=== PATIENT | male | born 1950 | race Caucasian/White ===

== ENCOUNTER → 2019-03-30 | Day surgery (SDC) | payer MEDICARE, BC ==
[2019-03-29 11:17] LABS: BASOPHILS # (AUTO) 0.1 (0.0-0.1); BASOPHILS % 0.7 % (0.0-1.0); EOSINOPHILS # (AUTO) 0.2 (0.0-0.4); EOSINOPHILS % 3.6 % (0.0-6.0); HEMOGLOBIN 15.4 g/dL (14.0-18.0); LYMPHOCYTES # (AUTO) 1.3 (1.0-3.2); MEAN CORPUSCULAR HEMOGLOBIN 26.1 pg (28-32); MEAN CORPUSCULAR HGB CONC 32.8 g/dL (31-35); MEAN CORPUSCULAR VOLUME 79.7 fL (81-99); MONOCYTES # (AUTO) 0.8 (0.2-0.8); MONOCYTES % 12.1 % (4.4-11.3); NEUTROPHILS # (AUTO) 4.3 (2.1-6.9); NEUTROPHILS % 64.3 % (38.7-80.0); PLATELET COUNT 241 x10e3/uL (140-360); RED CELL DISTRIBUTION WIDTH 18.9 % (11.7-14.4)
[2019-03-29 11:39] LABS: ALANINE AMINOTRANSFERASE 22 IU/L (0-55); ALBUMIN 3.8 g/dL (3.5-5.0); ALBUMIN/GLOBULIN RATIO 1.5 (0.8-2.0); ALKALINE PHOSPHATASE 63 IU/L (40-150); ANION GAP 11.2 mmol/L (8-16); BLOOD UREA NITROGEN 19 mg/dL (7-26); BUN/CREATININE RATIO 18 (6-25); CALCIUM 9.7 mg/dL (8.4-10.2); CARBON DIOXIDE 30 mmol/L (22-29); CHLORIDE 100 mmol/L (98-107); CREATININE, SERUM 1.08 mg/dL (0.72-1.25); EST GLOMERULAR FILTRATION RATE > 60 ML/MIN (60-); GLUCOSE 252 mg/dL (74-118); POTASSIUM 4.2 mmol/L (3.5-5.1); SODIUM 137 mmol/L (136-145)
[~2019-03-30] VITALS: Ht 180.3 cm; Wt 99.3 kg
[2019-03-30] VITALS (9 sets, daily range): BP systolic 96–139; BP diastolic 64–79
[~2019-03-30] MED LIST: ASPIRIN81 M2 PO; ATORVASTATIN CA20 MG PO; CIALIS20 MG PO; CIALIS5 MG PO; CORDRAN120 ML; CYANOCOBALAMIN INJ; FENTANYL CITRATE/PF 100MCG/2 ML INJ ONE; HEPARIN SOD/SOD CHLORIDE 2,000 ML ONE; HUMALOG100 UNIT/1; INVOKANA PO; IOPAMIDOL 370 MG/ML 200 ML INFUS..BTL INJ ONE; JARDIANCE PO; LEVOTHYROXINE50 MCG PO; LIDOCAINE HCL 2% LOCAL 20 ML VIAL ONE; MIDAZOLAM HCL 2 MG/2 ML VIAL ONE; NOVOLOG; NOVOLOG IL; SODIUM CHLORIDE 0.9% 1000ML 1,000 ML ONE; TESTOSTERO100 MG/1 M INJ; VERAPAMIL HCL 2.5 MG/ML 2 ML VIAL ONE; VYTORIN 10-401 EACH PO; Z ANDROGEL TD; Z MICARDIS HCT PO; Z.0.ACTOS30 MG PO; Z.0.ACTOS45 MG PO; Z.0.ASPIRIN CHEW81 M; Z.0.JANUVIA100 MG PO; Z.0.NEXIUM40 MG PO; Z.1.METFORMIN HCL100 PO; Z.2.VENLAFAXINE HCL7 PO; [UNRECOGNIZED DRUG - OTHER] PO; vitorin
--- OUTSIDE RECORDS SUMMARY | 2019-03-30 06:23 | XMS REPORT | Summary of Care ---
Author Author Ene Zayas LVN Organization Unknown Address [facility] Phone Unavailable Care Team Providers Care Pump House Operator Name Role Phone JOHNNIE WAN M.D. 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 Patient cannot afford medications (V60.2, Z59.6) Status: Active Health insurance coverage through Medicare Status: Active Has health insurance with inadequate coverage of health expenses (V60.89, Z59.8) Status: Active Type I diabetes mellitus without complication, uncontrolled (250.03, E10.65) Status: Active 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, 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 * Start : 06-Aug-2012 Active metFORMIN HCl - 1000 MG Oral Tablet TAKE ONE-HALF TABLET BY MOUTH TWICE DAILY * Quantity: 90 Refills: 0 SOCO JOHNNIE Munguia * Start : 03-Mar-2019 Active Centrum Silver Ultra Mens Oral Tablet 1 a day * Refills: 0 JOHNNIE WAN M.D. * Start : 06-Aug-2012 Active Aspirin 81 MG Oral Tablet Chewable 1 a day * Refills: 0 JOHNNIE WAN M.D. * Start : 06-Aug-2012 Active GlucaGen HypoKit 1 MG Injection Solution Reconstituted USE DIRECTED in case of severe hypoglycemia * Quantity: 1 Refills: 10 JOHNNIE WAN M.D. * Start : 06-Aug-2012 Active Effexor XR 75 MG Oral Capsule Extended Release 24 Hour TAKE 1 CAPSULE DAILY. * Refills: 0 JOHNNIE WAN M.D. * Start : 06-Aug-2012 Active NexIUM 40 MG Oral Capsule Delayed Release Per PCP * Refills: 0 JOHNNIE WAN M.D. * Start : 06-Aug-2012 Active Levothyroxine Sodium 50 MCG Oral Tablet TAKE 1 TABLET BY MOUTH EVERY DAY * Quantity: 90 Refills: 0 JOHNNIE WAN M.D. * Start : 25-Jan-2019 Active Testosterone Cypionate 200 MG/ML Intramuscular Solution INJECT 0.8 ML INTRAMUSCULARLY EVERY 2 WEEKS. Starting May * Quantity: 1 Refills: 1 JOHNNIE WAN M.D. * Start : 08-Mar-2013 Active 10 ML Vial Syringe 21G X 1" 3 ML For IM injection 2x a month * Quantity: 12 Refills: 4 JOHNNIE WAN M.D. * Start : 08-Mar-2013 Active Cialis 20 MG Oral Tablet TAKE 1 TABLET 1 HOUR BEFORE ACTIVITY NEEDED EVERY 3 DAYS. * Quantity: 20 Refills: 1 JOHNNIE WAN M.D. * Start : 30-Apr-2013 Active NovoFine 32G X 6 MM use to inject once daily * Quantity: 1 Refills: 3 JOHNNIE WAN M.D. * Start : 08-Apr-2014 Active 100 Miscellaneous Box Ketostix In Vitro Strip USE DIRECTED. * Quantity: 100 Refills: 0 JOHNNIE WAN M.D. * Start : 08-Sep-2015 Active Toujeo SoloStar 300 UNIT/ML Subcutaneous Solution Pen-injector 18 units every 12 hours if not wearing insulin * Refills: 0 JOHNNIE WAN M.D. * Start : 09-Sep-2016 Active Contour Next Test In Vitro Strip Check BG 8x a day * Quantity: 9 Refills: 3 JOHNNIE WAN M.D. * Start : 10-Oct-2016 Active 100 Strip Box Loy Microlet Lancets MISC CHECK BLOOD GLUCOSE 8 TIMES A DAY * Quantity: 3 Refills: 2 JOHNNIE WAN M.D. * Start : 10-Oct-2016 Active 100 Unit Package HumaLOG 100 UNIT/ML Subcutaneous Solution MN=1.0;5A=1.35; 5A=1.15; 1P=0.65; 4P=2.6; 9P=1.15; ICR MN=5.0; 5A=4.0; 8A=4.0; 4 P=2.9; 9P=4.2; CF: 40 (MN); 55 (9P) MDD:110 units * Quantity: 10 Refills: 0 JOHNNIE WAN M.D. * Start : 16-Feb-2018 Active 10 ML Vial Atorvastatin Calcium 40 MG Oral Tablet TAKE 1 TABLET BY MOUTH AT NIGHT.*REPLACING VYTORIN* * Quantity: 90 Refills: 0 JOHNNIE WAN M.D. * Start : 03-Mar-2019 Active Losartan Potassium-HCTZ 100-25 MG Oral Tablet TAKE 1 TABLET BY MOUTH DAILY( REPLACING MICARDIS HCT) * Quantity: 90 Refills: 0 JOHNNIE WAN M.D. * Start : 22-Jan-2019 Active Jardiance 10 MG Oral Tablet 1 tablet daily every morning; Replacing InvokanaStarting 09-28-18 * Quantity: 90 Refills: 0 JOHNNIE WAN M.D. * Start : 01-Jun-2018 Active FreeStyle Bertha 14 Day [place] Device * Refills: 0 JOHNNIE WAN M.D. * Start : 28-Sep-2018 Active FreeStyle Bertha 14 Day Sensor CHANGE ONE SENSOR EVERY14 DAYS DIRECTED * Quantity: 7 Refills: 3 JOHNNIE WAN M.D. * Start : 28-Sep-2018 Active Allergies and Adverse Reactions Name Dates Details Contrast Media Ready-Box MISC (Allergy) Status: Active Penicillins (Allergy) Status: Active Tetanus Toxoids (Allergy) Status: Active Procedures Procedure Dates Details History of Hernia Repair Completed Immunization Name Dates Details Influenza Lot #: [id number] on: 02-Sep-2014 Fluzone Quadrivalent 0.5 ML Intramuscular Suspension Prefilled Syringe Lot #: [id number] on: 08-Sep-2015 Fluzone High-Dose 0.5 ML Intramuscular Suspension Prefilled Syringe Lot #: [id number] on: 28-Sep-2018 Family History Name Dates Details Family history of Coronary Artery Disease (V17.49) Comments: Family History Status: Active Name Dates Details Family history of essential hypertension (V17.49, Z82.49) Status: Active Name Dates Details Family history of essential hypertension (V17.49, Z82.49) Status: Active Family history of Prostate cancer (185, C61) Status: Active Social History Name Dates Details - Status: Name Dates Details Never smoker Vital Signs Date Test Result Details No Known Vitals to report Results Date Description Value Details Results not documented Plan of Care Name Dates Details Planned Observations Planned Goals not documented Planned Encounters Appointment; JOHNNIE WAN M.D. On: 05-May-2019 9:00 Instructions Name Dates Details Instructions not documented Encounters Appointment; JOHNNIE WAN M.D. Encounter Diagnosis: Problem not documented On: 06-Jun-2017 12:00 Appointment; JOHNNIE WAN M.D. Encounter Diagnosis: Problem not documented On: 26-Sep-2017 12:00 Appointment; JOHNNIE WAN M.D. Encounter Diagnosis: Problem not documented On: 16-Feb-2018 12:00 Appointment; JOHNNIE WAN M.D. Encounter Diagnosis: Problem not documented On: 01-Jun-2018 8:30 Appointment; JOHNNIE WAN M.D. Encounter Diagnosis: Problem not documented On: 28-Sep-2018 8:30 Appointment; JOHNNIE WAN M.D. Encounter Diagnosis: Problem not documented On: 06-Jan-2019 9:30
--- NOTE | 2019-03-30 09:38 | NUR ---
0938 Received pt into #[id number] . [facility] Dr Shaffer Via rt radial Tr band approach No fix Denies For dc after 1030 whe Tr band removed.Back to baseline orientation, Resp shallow and regular sat 100% RA Abdomen soft and non tender denies necessity to defecate or urinate. Bilateral PPx4 PD/Dp intact. Offered PO intake able to tolerate.Explained POC aware of importance of f/o care. Vs stable No fross issues pain pallor pressure or dysrhythmia. No bleeding or hematoma noted. 1030 Tr band air removal started -2cc Neuro-vascular function intact 1130 Tr band air removal completed no hematoma and oozing Coban dressing applied with 2x2 dressing and wrist splint. 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 ds/rn
--- NOTE | 2019-03-30 11:30 | NUR ---
1130 Tr band off Tolerated removal. No gross issues pain pallor pressure or dysrhythmia. Neuro vascular function intact. Coban dressing with Tegaderm, 2x2 and Coban. Iv removed site w/o s/s infiltration Coban dressing in place.{t has copies of POC and aware of importance f/o care. Escorted to care via [employer] [employer] [facility] employee per wc No c/o Cp or Sob . ds/rn
--- NOTE | 2019-03-30 14:55 | Operative Report ---
DATE OF PROCEDURE: 03/30/2019 SURGEON: Benjamín Shaffer MD INDICATION: Coronary artery disease, abnormal stress test. PROCEDURES PERFORMED: 1. Left heart catheterization, selective coronary angiography. 2. Deployment of right wrist TR band. COMPLICATIONS: None. RECOMMENDATIONS: Dual antiplatelet therapy. DESCRIPTION OF PROCEDURE: Access obtained in the right radial artery. A 5-Maltese sheath was placed. Coronary angiography demonstrated [id number] coronary artery disease, diffuse 20% to 30% stenosis in all coronary vessels. Right coronary artery was dominant vessel. No critical stenosis or occlusions were noted. LV end-diastolic pressure of 4. No gradient across the aortic valve on pullback. Right wrist TR band applied. The patient was discharged home same day. Benjamín Shaffer MD [facility] /[id number]
== END | disposition home or self-care (01) ==
LOC: CATH LAB 06:21
PROVIDERS: ATTEND Internal Medicine Interventional Cardiology
DX: I25.10 Atherosclerotic heart disease of native coronary artery without angina pectoris (principal); R94.39 Abnormal result of other cardiovascular function study; I87.2 Venous insufficiency (chronic) (peripheral); R09.89 Other specified symptoms and signs involving the circulatory and respiratory systems; Z01.812 Encounter for preprocedural laboratory examination; Z79.82 Long term (current) use of aspirin; Z79.4 Long term (current) use of insulin
CPT/HCPCS: 36415 ×2; 80053; 82948; 85025; 93458; C1769; C1887; J2001; J2250; J7030; Q9967

== ENCOUNTER → 2019-12-22 | Outpatient (CLI) | payer MEDICARE, BC ==
[~2019-12-22] MED LIST changes: -FENTANYL CITRATE/PF 100MCG/2 ML INJ ONE; -HEPARIN SOD/SOD CHLORIDE 2,000 ML ONE; -IOPAMIDOL 370 MG/ML 200 ML INFUS..BTL INJ ONE; -LIDOCAINE HCL 2% LOCAL 20 ML VIAL ONE; -MIDAZOLAM HCL 2 MG/2 ML VIAL ONE; -SODIUM CHLORIDE 0.9% 1000ML 1,000 ML ONE; -VERAPAMIL HCL 2.5 MG/ML 2 ML VIAL ONE
--- NOTE | 2019-12-22 12:14 | Diagnostic Imaging Report ---
EXAM: Lumbar spine radiographs-4 views INDICATION: Lumbago COMPARISON: Report from lumbar spine radiographs 09/19/2013, the images are not available for review at the time of this dictation. FINDINGS: BONES: The alignment is within normal limits. No acute displaced fractures. Vertebral body heights are preserved. Likely bone island at L1, previously described on lumbar spine radiograph from 09/19/2013, although the images are not available for review for comparison. DISCS: Mild multilevel degenerative disc changes, most pronounced at L5-S1. JOINTS: Moderate facet degenerative changes at L4-L5 and L5-S1. SOFT TISSUES: Unremarkable IMPRESSION: No acute radiographic abnormality. Mild degenerative disc and moderate facet degenerative changes as above. Signed by: Dr. Nikunj Kaminski MD on 12/22/2019 12:11 PM
== END ==
LOC: RAD 11:31
PROVIDERS: ATTEND Internal Medicine
DX: M54.5 Low back pain (principal)
CPT/HCPCS: 72100

== ENCOUNTER → 2021-06-21 | Outpatient (CLI) | payer MEDICARE, BC | LOC: RAD 15:15 | PROVIDERS: ATTEND Internal Medicine | DX: M17.11 Unilateral primary osteoarthritis, right knee (principal) ==

== ENCOUNTER 2022-03-30 10:51 | Inpatient (IN) | payer MEDICARE, BC ==
[~2022-03-30] VITALS: Ht 180.3 cm; Wt 99.3 kg
[2022-03-30] MEDS ORDERED: SODIUM CHLORIDE 0.9% 1000ML 1,000 ML IV STA (11:25)
[2022-03-30 11:45] LABS: BASOPHILS % 0.4 % (0.0-1.0); EOSINOPHILS # (AUTO) 0.2 (0.0-0.4); EOSINOPHILS % 2.1 % (0.0-6.0); HEMATOCRIT 40.3 % (38.2-49.6); HEMOGLOBIN 13.2 g/dL (14.0-18.0); MEAN CORPUSCULAR HEMOGLOBIN 29.6 pg (28-32); MEAN CORPUSCULAR HGB CONC 32.8 g/dL (31-35); MEAN CORPUSCULAR VOLUME 90.4 fL (81-99); MONOCYTES # (AUTO) 0.4 (0.2-0.8); MONOCYTES % 5.6 % (4.4-11.3); NEUTROPHILS # (AUTO) 5.6 (2.1-6.9); NEUTROPHILS % 77.5 % (38.7-80.0); PLATELET COUNT 209 x10e3/uL (140-360); RED BLOOD COUNT 4.46 x10e6/uL (4.3-5.7)
[2022-03-30 12:06] LABS: INR 1.01; PARTIAL THROMBOPLASTIN TIME 26.3 seconds (23.8-35.5); PROTHROMBIN TIME 14.2 seconds (11.9-14.5)
[2022-03-30 12:14] LABS: ALANINE AMINOTRANSFERASE 26 IU/L (0-55); ALBUMIN 3.5 g/dL (3.5-5.0); ALBUMIN/GLOBULIN RATIO 1.3 (0.8-2.0); ALKALINE PHOSPHATASE 66 IU/L (40-150); ANION GAP 13.9 mmol/L (8-16); BLOOD UREA NITROGEN 20 mg/dL (7-26); BUN/CREATININE RATIO 24 (6-25); CALCIUM 8.4 mg/dL (8.4-10.2); CARBON DIOXIDE 26 mmol/L (22-29); CHLORIDE 105 mmol/L (98-107); CREATINE KINASE 209 IU/L (30-200); CREATININE, SERUM 0.85 mg/dL (0.72-1.25); GLUCOSE 217 mg/dL (74-118); MAGNESIUM 1.5 MG/DL (1.3-2.1); POTASSIUM 3.9 mmol/L (3.5-5.1); SODIUM 141 mmol/L (136-145)
[2022-03-30] MEDS ORDERED: ONDANSETRON HCL INJ 2MG/ML 2ML 2 MG/ML VIAL IV STA (12:23)
[2022-03-30] MEDS ORDERED: FLOMAX0.4 MG PO (12:25)
[2022-03-30] MEDS ORDERED: FUROSEMIDE40 MG PO (12:27)
[2022-03-30] MEDS ORDERED: LOSARTAN POTAS100 MG PO (12:27)
[2022-03-30] MEDS ORDERED: METAMUCIL FIBE3.4 GM PO (12:28)
[2022-03-30] MEDS ORDERED: D3 PO (12:29)
[2022-03-30] MEDS ORDERED: ZINC PO (12:30)
[2022-03-30] MEDS ORDERED: MECLIZINE HCL 12.5 MG TAB PO NR (12:30)
[2022-03-30] MEDS ORDERED: L-LYSINE500 M2 PO (12:31)
[2022-03-30] MEDS ORDERED: DEXTROSE 50% SYRINGE 50 ML IV PRN (13:30)
[2022-03-30] MEDS ORDERED: ONDANSETRON HCL INJ 2MG/ML 2ML 2 MG/ML VIAL IV PRN ×2 (13:30→14:15)
[2022-03-30] MEDS ORDERED: IOPAMIDOL 370 MG/ML 100 ML INFUS..BTL INJ ONE (13:38)
[2022-03-30] MEDS ORDERED: METHYLPREDNISOLONE SOD SUCC 125 MG/2ML VIAL IV STA (13:58)
[2022-03-30] MEDS ORDERED: CYANOCOBALAMIN INJ 1,000 MCG/ML VIAL IM SCH (15:15)
[2022-03-30 15:50] VITALS: BP 173/67
[2022-03-30] MEDS: INSULIN LISPRO 100 UNIT/1 ML 3ML VIAL SQ SCH ×2 (16:30→21:00)
[2022-03-30 16:50] VITALS: BP 173/67
[2022-03-30] MEDS: METFORMIN HCL 500 MG TAB PO SCH (17:00)
[2022-03-30] MEDS: MECLIZINE HCL 12.5 MG TAB PO PRN (17:21)
[2022-03-30] MEDS ORDERED: DIPHENHYDRAMINE HCL INJ 50 MG/ML VIAL IV ONE (18:30)
[2022-03-30] MEDS: HYDROCORTISONE SOD SUCCINATE 100 MG VIAL IV SCH (18:32)
[2022-03-30 18:40] VITALS: BP 173/67
[2022-03-30 20:20] VITALS: BP 161/68
[2022-03-30 20:59] LABS: CREATINE KINASE 175 IU/L (30-200)
[2022-03-30 21:00] VITALS: BP 161/68
[2022-03-31 00:25] VITALS: BP 117/49
[2022-03-31 04:00] VITALS: BP 133/52
[2022-03-31] MEDS ORDERED: LEVOTHYROXINE SODIUM 50 MCG TAB PO SCH (06:00)
[2022-03-31 07:06] LABS: BASOPHILS % 0.1 % (0.0-1.0); HEMATOCRIT 40.3 % (38.2-49.6); HEMOGLOBIN 13.3 g/dL (14.0-18.0); LYMPHOCYTES # (AUTO) 0.9 (1.0-3.2); LYMPHOCYTES % 5.5 % (18.0-39.1); MEAN CORPUSCULAR HEMOGLOBIN 30.2 pg (28-32); MEAN CORPUSCULAR VOLUME 91.6 fL (81-99); MONOCYTES # (AUTO) 0.5 (0.2-0.8); MONOCYTES % 3.2 % (4.4-11.3); NEUTROPHILS % 90.7 % (38.7-80.0); PLATELET COUNT 240 x10e3/uL (140-360); RED CELL DISTRIBUTION WIDTH 13.2 % (11.7-14.4)
[2022-03-31] MEDS ORDERED: OMEPRAZOLE 20 MG CAP PO SCH (07:30)
[2022-03-31] MEDS: INSULIN LISPRO 100 UNIT/1 ML 3ML VIAL SQ SCH ×2 (07:30→11:30)
[2022-03-31 07:32] LABS: ALBUMIN 3.1 g/dL (3.5-5.0); ALBUMIN/GLOBULIN RATIO 1.1 (0.8-2.0); CALCIUM 8.6 mg/dL (8.4-10.2); CHOL/HDL RATIO 3.4 (3.9-4.7); CREATININE, SERUM 0.89 mg/dL (0.72-1.25)
[2022-03-31 07:47] VITALS: BP 133/58
[2022-03-31 07:49] LABS: CREATINE KINASE 131 IU/L (30-200)
[2022-03-31 08:14] VITALS: BP 133/58
[2022-03-31] MEDS: MECLIZINE HCL 12.5 MG TAB PO PRN (08:58)
[2022-03-31] MEDS ORDERED: VENLAFAXINE HCL 75 MG TAB PO SCH (09:00)
[2022-03-31] MEDS ORDERED: MULTIVITAMINS/MINERALS TAB PO SCH (09:00)
[2022-03-31] MEDS ORDERED: TAMSULOSIN HCL 0.4 MG CAP PO SCH (09:00)
[2022-03-31] MEDS: HYDROCORTISONE SOD SUCCINATE 100 MG VIAL IV SCH (09:00)
[2022-03-31] MEDS ORDERED: LOSARTAN POTASSIUM 100 MG TAB PO SCH (09:00)
[2022-03-31] MEDS ORDERED: FUROSEMIDE 40 MG TAB PO SCH (09:00)
[2022-03-31] MEDS ORDERED: ASPIRIN 81 MG ENTERIC COATED PO SCH (09:00)
[2022-03-31] MEDS: METFORMIN HCL 500 MG TAB PO SCH (09:03)
[2022-03-31 11:30] VITALS: BP 141/86
[2022-03-31] MEDS ORDERED: GADOBENATE DIMEGLUMINE 1 ML IV ONE (12:45)
[2022-03-31] MEDS ORDERED: ANTIVERT25 M1 PO (14:27)
[2022-03-31 15:08] LABS: CREATINE KINASE 138 IU/L (30-200)
[2022-03-31] MEDS ORDERED: ATORVASTATIN 20 MG TAB PO SCH (21:00)
== END 2022-03-31 15:00 | disposition home or self-care (01) | DRG 149 ==
LOC: ER 11:15 → ERHOLD 13:28 → MED/SURG2 16:59
PROVIDERS: ADMIT Internal Medicine; ATTEND Internal Medicine
DX: H81.393 Other peripheral vertigo, bilateral (principal); H55.09 Other forms of nystagmus; R00.1 Bradycardia, unspecified; I10 Essential (primary) hypertension; E11.9 Type 2 diabetes mellitus without complications; E78.5 Hyperlipidemia, unspecified; I25.10 Atherosclerotic heart disease of native coronary artery without angina pectoris; R27.0 Ataxia, unspecified; Z88.0 Allergy status to penicillin; Z88.8 Allergy status to other drugs, medicaments and biological substances; Z20.822 Contact with and (suspected) exposure to COVID-19; Z82.49 Family history of ischemic heart disease and other diseases of the circulatory system; L98.8 Other specified disorders of the skin and subcutaneous tissue; Z79.84 Long term (current) use of oral hypoglycemic drugs
CPT/HCPCS: 36415; 70450; 70496; 70498; 70553; 71045; 80053; 80061; 82550; 82553; 82948; 83735; 83880; 84443; 84484; 85025; 85610; 85730; 93005; 93306; 94799; 99284; J1200; J1720; J2405; J2930; J7030; Q9967

== ENCOUNTER → 2022-04-25 | Day surgery (SDC) | payer MEDICARE, BC ==
[2022-04-23 08:02] LABS: BASOPHILS % 0.2 % (0.0-1.0); EOSINOPHILS # (AUTO) 0.3 (0.0-0.4); EOSINOPHILS % 3.5 % (0.0-6.0); HEMATOCRIT 43.8 % (38.2-49.6); HEMOGLOBIN 14.3 g/dL (14.0-18.0); LYMPHOCYTES # (AUTO) 1.3 (1.0-3.2); LYMPHOCYTES % 13.7 % (18.0-39.1); MEAN CORPUSCULAR HGB CONC 32.6 g/dL (31-35); MEAN CORPUSCULAR VOLUME 91.8 fL (81-99); MONOCYTES # (AUTO) 0.9 (0.2-0.8); NEUTROPHILS # (AUTO) 7.2 (2.1-6.9); NEUTROPHILS % 73.5 % (38.7-80.0); PLATELET COUNT 250 x10e3/uL (140-360); RED BLOOD COUNT 4.77 x10e6/uL (4.3-5.7); RED CELL DISTRIBUTION WIDTH 13.2 % (11.7-14.4)
[~2022-04-25] MED LIST changes: +ANTIVERT25 M1 PO; +ASPIRIN81 MG PO; +D3 PO; +FLOMAX0.4 MG PO; +FUROSEMIDE40 MG PO; +GLUCAGON FOR INJ 1 MG VIAL ONE; +HYOSCYAMINE SULFATE 0.5 MG/ML INJ ONE; +INSULIN REGULAR, HUMAN 100 UNIT/1 ML ONE; +L-LYSINE500 M2 PO; +LIDOCAINE HCL 2% LOCAL INJ 5 ML SDV VIAL INJ ONE; +LOSARTAN POTAS100 MG PO; +METAMUCIL FIBE3.4 GM PO; +PROPOFOL IV EMULSION 10 MG/ML 20 ML VIAL ONE; +ZINC PO
[2022-04-25 11:55] VITALS: BP 125/70
== END | disposition home or self-care (01) ==
LOC: OR 07:38
PROVIDERS: ATTEND Internal Medicine Gastroenterology
DX: Z12.11 Encounter for screening for malignant neoplasm of colon (principal); K63.5 Polyp of colon; K64.8 Other hemorrhoids; K21.9 Gastro-esophageal reflux disease without esophagitis; Z71.3 Dietary counseling and surveillance; I10 Essential (primary) hypertension; E11.9 Type 2 diabetes mellitus without complications; E78.00 Pure hypercholesterolemia, unspecified; N40.0 Benign prostatic hyperplasia without lower urinary tract symptoms; E03.9 Hypothyroidism, unspecified; R00.1 Bradycardia, unspecified; I25.10 Atherosclerotic heart disease of native coronary artery without angina pectoris; E78.5 Hyperlipidemia, unspecified; F32.A Depression, unspecified; F41.9 Anxiety disorder, unspecified; Z88.0 Allergy status to penicillin; Z88.8 Allergy status to other drugs, medicaments and biological substances; Z91.041 Radiographic dye allergy status; Z01.812 Encounter for preprocedural laboratory examination; Z20.822 Contact with and (suspected) exposure to COVID-19; Z79.4 Long term (current) use of insulin; Z79.899 Other long term (current) drug therapy; Z79.82 Long term (current) use of aspirin; Z68.29 Body mass index [BMI] 29.0-29.9, adult; Z98.61 Coronary angioplasty status; Z80.0 Family history of malignant neoplasm of digestive organs
CPT/HCPCS: 0223U; 36415 ×2; 45380; 82948; 85025; 88305; 45378; J1610; J1817; J1980; J2001

== ENCOUNTER → 2023-01-15 | Outpatient (CLI) | payer MEDICARE, BC ==
[~2023-01-15] MED LIST changes: -GLUCAGON FOR INJ 1 MG VIAL ONE; -HYOSCYAMINE SULFATE 0.5 MG/ML INJ ONE; -INSULIN REGULAR, HUMAN 100 UNIT/1 ML ONE; -LIDOCAINE HCL 2% LOCAL INJ 5 ML SDV VIAL INJ ONE; -PROPOFOL IV EMULSION 10 MG/ML 20 ML VIAL ONE
== END ==
LOC: US 07:14
PROVIDERS: ATTEND Internal Medicine
DX: R10.10 Upper abdominal pain, unspecified (principal); K82.9 Disease of gallbladder, unspecified
CPT/HCPCS: 76705

== ENCOUNTER → 2023-05-09 | Outpatient (CLI) | payer MEDICARE, BC | LOC: NM 10:24 | PROVIDERS: ATTEND Internal Medicine | DX: K82.9 Disease of gallbladder, unspecified (principal); R10.10 Upper abdominal pain, unspecified; K21.9 Gastro-esophageal reflux disease without esophagitis | CPT/HCPCS: 78227; A9537 ==

== ENCOUNTER → 2024-05-06 | Day surgery (SDC) | payer MEDICARE, BC ==
[2024-05-04 13:33] LABS: BASOPHILS % 0.6 % (0.0-1.0); EOSINOPHILS # (AUTO) 0.3 (0.0-0.4); EOSINOPHILS % 3.4 % (0.0-6.0); HEMATOCRIT 32.2 % (38.2-49.6); HEMOGLOBIN 10.7 g/dL (14.0-18.0); LYMPHOCYTES # (AUTO) 1.4 (1.0-3.2); LYMPHOCYTES % 19.5 % (18.0-39.1); MEAN CORPUSCULAR HEMOGLOBIN 30.1 pg (28-32); MEAN CORPUSCULAR HGB CONC 33.2 g/dL (31-35); MEAN CORPUSCULAR VOLUME 90.7 fL (81-99); MONOCYTES # (AUTO) 0.5 (0.2-0.8); MONOCYTES % 7.2 % (4.4-11.3); NEUTROPHILS % 69.2 % (38.7-80.0); PLATELET COUNT 198 x10e3/uL (140-360); RED BLOOD COUNT 3.55 x10e6/uL (4.3-5.7); RED CELL DISTRIBUTION WIDTH 13.8 % (11.7-14.4); WHITE BLOOD COUNT 7.27 x10e3/uL (4.8-10.8)
[~2024-05-06] MED LIST changes: +AMLODIPINE-BEN1 EAC5 PO; +FENTANYL CITRATE/PF 100MCG/2 ML INJ ONE; +HALOPERIDOL LACTATE 5 MG/ML VIAL ONE; +LACTATED RINGER'S 1,000 ML ONE; +LIDOCAINE HCL 2% LOCAL INJ 5 ML SDV VIAL INJ ONE; +LYSINE1000 MG PO; +METOCLOPRAMIDE HCL 10 MG/2ML VIAL ONE; +PROPOFOL IV EMULSION 10 MG/ML 20 ML VIAL ONE; +TRULICITY3 MG/0.5 M SC
[2024-05-06 07:55] VITALS: BP 108/57; PULSE 51; RESP 12; O2SAT 95
== END | disposition home or self-care (01) ==
LOC: ENDO 05:05
PROVIDERS: ATTEND Internal Medicine Gastroenterology
DX: K29.50 Unspecified chronic gastritis without bleeding (principal); K31.7 Polyp of stomach and duodenum; K22.2 Esophageal obstruction; K31.89 Other diseases of stomach and duodenum; K21.9 Gastro-esophageal reflux disease without esophagitis; Z71.3 Dietary counseling and surveillance; R43.8 Other disturbances of smell and taste; I10 Essential (primary) hypertension; E78.5 Hyperlipidemia, unspecified; E11.9 Type 2 diabetes mellitus without complications; E03.9 Hypothyroidism, unspecified; Z88.0 Allergy status to penicillin; Z91.048 Other nonmedicinal substance allergy status; Z01.810 Encounter for preprocedural cardiovascular examination; Z01.812 Encounter for preprocedural laboratory examination; Z79.82 Long term (current) use of aspirin; Z79.84 Long term (current) use of oral hypoglycemic drugs; Z79.85 Long-term (current) use of injectable non-insulin antidiabetic drugs; Z79.4 Long term (current) use of insulin; Z79.899 Other long term (current) drug therapy; Z68.28 Body mass index [BMI] 28.0-28.9, adult
CPT/HCPCS: 36415; 43239; 43251; 43450; 85025; 88305; 88342; 93005; J1630; J2001; J2470; J2704; J2765; J3010; J7121; 88312

== ENCOUNTER → 2025-04-07 | Day surgery (SDC) | payer MEDICARE, BC ==
[2025-03-30 14:06] LABS: BASOPHILS % 0.6 % (0.0-1.0); EOSINOPHILS # (AUTO) 0.2 (0.0-0.4); EOSINOPHILS % 2.6 % (0.0-6.0); HEMATOCRIT 36.8 % (38.2-49.6); HEMOGLOBIN 12.4 g/dL (14.0-18.0); LYMPHOCYTES # (AUTO) 1.8 (1.0-3.2); LYMPHOCYTES % 24.8 % (18.0-39.1); MEAN CORPUSCULAR HGB CONC 33.7 g/dL (31-35); MEAN CORPUSCULAR VOLUME 88.9 fL (81-99); MONOCYTES # (AUTO) 0.6 (0.2-0.8); MONOCYTES % 8.7 % (4.4-11.3); NEUTROPHILS # (AUTO) 4.6 (2.1-6.9); PLATELET COUNT 234 x10e3/uL (140-360); RED BLOOD COUNT 4.14 x10e6/uL (4.3-5.7); RED CELL DISTRIBUTION WIDTH 13.2 % (11.7-14.4); WHITE BLOOD COUNT 7.22 x10e3/uL (4.8-10.8)
[~2025-04-07] MED LIST changes: +GLYCOPYRROLATE INJ 0.2 MG/ML VIAL ONE; -HALOPERIDOL LACTATE 5 MG/ML VIAL ONE; -LACTATED RINGER'S 1,000 ML ONE; -METOCLOPRAMIDE HCL 10 MG/2ML VIAL ONE
[2025-04-07 07:28] VITALS: TEMP 97.6
[2025-04-07 07:40] VITALS: BP 131/63; PULSE 63; RESP 15; O2SAT 96
[2025-04-12 08:13] LABS: ENDOMYSIAL ANTIBODIES, IGA Negative (Negative)
[2025-04-12 09:54] LABS: IMMUNOGLOBULIN A 42 mg/dL (61-437); TISSUE TRANSGLUTAMINASE IGA AB <2 U/mL (0-3)
== END | disposition home or self-care (01) ==
LOC: ENDO 05:42
PROVIDERS: ATTEND Internal Medicine Gastroenterology
DX: K22.2 Esophageal obstruction (principal); K29.60 Other gastritis without bleeding; K20.90 Esophagitis, unspecified without bleeding; K31.89 Other diseases of stomach and duodenum; Z86.0100 Personal history of colon polyps, unspecified; R19.5 Other fecal abnormalities; E11.9 Type 2 diabetes mellitus without complications; I25.118 Atherosclerotic heart disease of native coronary artery with other forms of angina pectoris; I10 Essential (primary) hypertension; E78.5 Hyperlipidemia, unspecified; I87.2 Venous insufficiency (chronic) (peripheral); E03.9 Hypothyroidism, unspecified; E66.9 Obesity, unspecified; N40.0 Benign prostatic hyperplasia without lower urinary tract symptoms; Z71.3 Dietary counseling and surveillance; Z88.0 Allergy status to penicillin; Z88.8 Allergy status to other drugs, medicaments and biological substances; Z01.810 Encounter for preprocedural cardiovascular examination; Z01.812 Encounter for preprocedural laboratory examination; Z79.84 Long term (current) use of oral hypoglycemic drugs; Z79.85 Long-term (current) use of injectable non-insulin antidiabetic drugs; Z79.4 Long term (current) use of insulin; Z79.899 Other long term (current) drug therapy; Z68.28 Body mass index [BMI] 28.0-28.9, adult
CPT/HCPCS: 36415 ×2; 43239; 43450; 82784; 82948; 83516; 85025; 86256; 88305; 88342; 93005; J2003; J2470; J2704; J3010

== ENCOUNTER → 2025-04-13 | Outpatient (REF) | payer MEDICARE, BC ==
[~2025-04-13] MED LIST changes: -FENTANYL CITRATE/PF 100MCG/2 ML INJ ONE; -GLYCOPYRROLATE INJ 0.2 MG/ML VIAL ONE; -LIDOCAINE HCL 2% LOCAL INJ 5 ML SDV VIAL INJ ONE; -PROPOFOL IV EMULSION 10 MG/ML 20 ML VIAL ONE
== END ==
LOC: US 07:47
PROVIDERS: ATTEND Nurse Practitioner
DX: R10.10 Upper abdominal pain, unspecified (principal)
CPT/HCPCS: 76700